=== PATIENT | male | born 1990 | race Two or more races ===

== ENCOUNTER 2020-05-11 10:55 | Day surgery (SDC) | payer OTHER ==
[~2020-05-11] VITALS: Ht 165.1 cm; Wt 74.8 kg
[2020-05-11] VITALS (8 sets, daily range): BP systolic 113–134; BP diastolic 66–77
[~2020-05-11 10:55] MED LIST: NO HOME MEDS; ceFAZolin 2gm in dextrose, iso 50 ML IV ONE; famotidine 20mg tablet PO ONE; ringers solution, lacted 1,000 ML IV SCH
[2020-05-11] MEDS ORDERED: sevoflurane 250ml liquid IH ONE (16:32)
[2020-05-11] MEDS ORDERED: morphine 4 MG/ML inj SYRINge IV PRN (16:40)
[2020-05-11] MEDS ORDERED: meperidine/PF 25mg/ml syringe IV PRN ×3 (16:40)
[2020-05-11] MEDS ORDERED: morphine 2 MG/ML inj. syringe IV PRN (16:40)
[2020-05-11] MEDS ORDERED: acetaminophen 1,000mg/100ml IV 100 ML IV PRN (16:40)
[2020-05-11] MEDS ORDERED: ondansetron/PF 4mg/2ml inj IV PRN (16:40)
[2020-05-11] MEDS ORDERED: ringers solution, lacted 1,000 ML IV SCH (16:40)
[2020-05-11] MEDS ORDERED: proCHLORperazine 10 MG/2 ml inj IV PRN (16:40)
[2020-05-11] MEDS ORDERED: ketorolac trometh. 30mg/ml inj. IV ONE (16:40)
[2020-05-11] MEDS ORDERED: fentaNYL/PF 50MCG/1 ML 2ML syringe ONE (16:43)
[2020-05-11] MEDS ORDERED: BUPIVAcaine/PF 2.5 mg/ml (0.25%) 30ml vial ONE (16:45)
[2020-05-11] MEDS ORDERED: midazolam 2 mg/2 ml injection ONE (16:56)
[2020-05-11] MEDS ORDERED: LIDOcaine 2% (20mg/ml) 5ml vial ONE (18:03)
[2020-05-11] MEDS ORDERED: propofol inj 20 ML IV ONE (18:03)
[2020-05-11] MEDS ORDERED: dexamethasone sod phosphate 4mg/ml inj. ONE (18:03)
[2020-05-11] MEDS ORDERED: ondansetron/PF 4mg/2ml inj ONE (18:03)
[2020-05-11] MEDS ORDERED: HYDROcodone/acetaminophen 10/325mg tab PO PRN (18:05)
--- NOTE | 2020-05-11 18:10 | NUR ---
Received from OR via BED, accompanied by Anesthesiologist DR WINCHESTER and report given by Anesthesiolgist. PATIENT A&OX4, DENIES PAIN, V/S WNL, NEUROVASCULAR CHECKS INTACT, 20G PIV LUE, SCD ON, DRESSING/ SPLINT TO RIGHT WRIST CDI ELEVATED WITH ICEBAG APPLIED.
--- NOTE | 2020-05-11 19:10 | NUR ---
PATIENT A&OX4, DENIES PAIN, V/S WNL, NEUROVASCULAR CHECKS INTACT, 20G PIV LUE D/C, SCD OFF, DRESSING TO RIGHT WRIST CDI ELEVATED WITH ICEBAG APPLIED. SCRIPTS E SCRIBED TO [facility]. I HAVE REVIEWED D/C INSTRUCTIONS WITH PATIENT AND FAMILY AND THEY HAVE VERBALIZED UNDERSTANDING. PATIENT D/C HOME WITH ALL BELONGINGS AND FAMILY GAVE TRANSPORT HOME.SPLINT
== END 2020-05-11 19:10 | disposition home or self-care (01) ==
LOC: PAS 10:55
PROVIDERS: ATTEND Orthopaedic Surgery
DX: S56.521A Laceration of other extensor muscle, fascia and tendon at forearm level, right arm, initial encounter (principal); Z20.828 Contact with and (suspected) exposure to other viral communicable diseases; Z79.899 Other long term (current) drug therapy; Z87.891 Personal history of nicotine dependence; Z72.89 Other problems related to lifestyle; W31.89XA Contact with other specified machinery, initial encounter; Y93.89 Activity, other specified; Y92.89 Other specified places as the place of occurrence of the external cause; Y99.8 Other external cause status
CPT/HCPCS: 25272; 82948; 87635; C9803; J0131; J1100; J1885; J2001; J2175; J2250; J2405; J2704; J3010; J3490; J7120; A4215; A4618; A6449; A7000

== ENCOUNTER 2022-09-19 12:52 | Emergency (ER) | payer MEDICAID, OTHER ==
[~2022-09-19] VITALS: Ht 165.1 cm; Wt 77.3 kg
[~2022-09-19 12:52] MED LIST changes: -ceFAZolin 2gm in dextrose, iso 50 ML IV ONE; -famotidine 20mg tablet PO ONE; -ringers solution, lacted 1,000 ML IV SCH
[2022-09-19 13:12] VITALS: BP 117/74
[2022-09-19] MEDS ORDERED: TETanus/Pertussis (Acell)/Diphther VAC/PF (Tdap-Adult) 0.5ml syringe IMVAC ONE (15:10)
[2022-09-19] MEDS ORDERED: LIDOcaine 1% W/epiNEPHrine 1:100,000 20ml vial IJ ONE (15:10)
[2022-09-19] MEDS ORDERED: SULF1TAB49 PO (16:09)
[2022-09-19] MEDS ORDERED: IBUP-1986 PO (16:09)
[2022-09-19] MEDS ORDERED: ketorolac trometh. 30mg/ml inj. IM ONE (16:10)
== END 2022-09-19 16:40 | disposition home or self-care (01) ==
LOC: ER 12:52
DX: S80.252A Superficial foreign body, left knee, initial encounter (principal); F12.90 Cannabis use, unspecified, uncomplicated; Z72.89 Other problems related to lifestyle; Z79.899 Other long term (current) drug therapy; X58.XXXA Exposure to other specified factors, initial encounter; Y93.89 Activity, other specified; Y92.89 Other specified places as the place of occurrence of the external cause; Y99.8 Other external cause status
CPT/HCPCS: 10120; 73560; 90715; 96372; 99285; J1885